=== PATIENT | female | born 1960 | race Hispanic/Latino ===

== ENCOUNTER 2020-04-03 08:46 | Emergency (ER) | payer OTHER ==
[~2020-04-03] VITALS: Ht 170.2 cm; Wt 140.6 kg
[2020-04-03] MEDS ORDERED: KETOROLAC TROMETHAMINE 30 MG/ML VIAL ONE (09:11)
[2020-04-03] MEDS: SODIUM CHLORIDE 0.9% 1000ML 1,000 ML IV STA ×2 (09:12→09:20)
[2020-04-03] MEDS ORDERED: SODIUM CHLORIDE 0.9% 1000ML 1,000 ML ONE (09:12)
[2020-04-03] MEDS ORDERED: ONDANSETRON HCL INJ 2MG/ML 2ML 2 MG/ML VIAL ONE (09:12)
[2020-04-03] MEDS ORDERED: KETOROLAC TROMETHAMINE 30 MG/ML VIAL IV STA (09:20)
[2020-04-03] MEDS ORDERED: ONDANSETRON HCL INJ 2MG/ML 2ML 2 MG/ML VIAL IV STA (09:20)
--- NOTE | 2020-04-03 10:46 | Diagnostic Imaging Report ---
CT of the abdomen and pelvis, without contrast. History: Right flank pain. Comparison: None available. Technique: Multidetector CT scanning of the abdomen and pelvis was performed from the level of the lung bases to the inferior pubic rami without the use of contrast material. Coronal and sagittal multiplanar reformations were obtained. RADIATION DOSE: Total DLP: 814.26 mGy*cm Dose modulation, iterative reconstruction, and/or weight based adjustment of the mA/kV was utilized to reduce the radiation dose to as low as reasonably achievable. Finds: The visualized intrathoracic contents demonstrate no significant abnormalities. The liver is normal in size and attenuation on this noncontrast enhanced examination. The gallbladder is not visualized likely surgically absent. There is no biliary ductal dilatation. The stomach, spleen, pancreas, and bilateral adrenal glands demonstrate an unremarkable noncontrast appearance. The kidneys are normal in size and location. There is a 9 mm nonobstructing stone identified within the inferior pole the right kidney. There is no evidence for hydronephrosis. No ureteral stone or dilatation is appreciated. The partially distended urinary bladder demonstrates no significant abnormalities. The uterus and adnexa are grossly unremarkable. The abdominal aorta is normal course and caliber with minimal atherosclerotic calcifications. The IVC is normal caliber. Please note evaluation the bowel is limited without the use of enteric contrast material. The visualized loops of small and large bowel demonstrate no evidence of obstruction or inflammation. The appendix appears unremarkable. There is no ascites or intraperitoneal free air. No abnormally enlarged lymph nodes are identified within the abdomen or pelvis. There is a small fat-containing of the hernia present. There are degenerative changes of the lower lumbar spine. The osseous structures otherwise no entry no evidence for acute fracture or destructive process. IMPRESSION: 9 mm nonobstructing stone identified within the inferior pole of the right kidney. No evidence for hydronephrosis or obstructive uropathy. Signed by: Dr. Bert Farias MD on 04/03/2020 10:43 AM
--- NOTE | 2020-04-03 11:13 | Emergency Department Note ---
History of Present Illnes History of Present Illness Chief Complaint: Flank Pain History of Present Illness This is a 59 year old female . Chief Complaint Comment right flank pain for one week, seeen at [facility] and dx with uti. pt states not getting better and also vomiting x3 today. Historian: Patient Arrival Mode: Car Onset (how long ago): day(s) (2) Location: R flank Quality: sharp Radiation: Denies non-radiation, Denies back, Denies neck, Denies extremity, Denies abdomen, Denies periumbilical, Denies flank, Denies proximal, Denies dis nura, Denies other Severity: moderate Onset quality: gradual Duration (how long): day(s) (2) Timing of current episode: intermittent Progression: waxing and waning Chronicity: new Context: Denies recent illness, Denies recent surgery, Denies recent immobilization, Denies recent travel, Denies trauma/injury, Denies new medications, Denies hx of DVT/PE, Denies non-compliance w/ medications, Denies other Relieving factors: none Exacerbating factors: none Associated symptoms: Reports nausea/vomiting; Denies denies other symptoms, Denies confusion, Denies chest pain, Denies cough, Denies diaphoresis, Denies fever/chills, Denies headaches, Denies loss of appetite, Denies malaise, Denies rash, Denies seizure, Denies shortness of breath, Denies syncope, Denies weakness, Denies other Treatments prior to arrival: none Previous service: medications given Past Medical/Family History Physician Review I have reviewed the patient's past medical and family history. Any updates have been documented here. Past Medical History Recent Fever: No Clinical Suspicion of Infectio: No New/Unexplained Change in Ment: No Past Medical History: None Past Surgical History: Cholecysctectomy Social History Smoking Cessation: Never Smoker Counseling Performed: No Alcohol Use: None Any Illegal Drug Use: No Physically hurt or threatened: No Other Last Tetanus: unknown Any Pre-Existing Lines (PICC,: No Review of Systems Review of Systems Constitutional: Reports no symptoms EENTM: Reports no symptoms Cardiovascular: Reports no symptoms Respiratory: Reports no symptoms Gastrointestinal: Reports no symptoms Genitourinary: Reports as per HPI Musculoskeletal: Reports no symptoms Integumentary: Reports no symptoms Neurological: Reports no symptoms Psychological: Reports no symptoms Endocrine: Reports no symptoms Hematological/Lymphatic: Reports no symptoms Physical Exam Related Data Allergies: Coded Allergies: No Known Allergies (Unverified , 01/16/15) Triage Vital Signs Vital Signs Date Time Temp Pulse Resp B/P (MAP) Pulse Ox O2 Delivery O2 Flow Rate FiO2 04/03/20 09:08 97.5 95 18 185/105 99 Vital signs reviewed: Yes Physical Exam CONSTITUTIONAL Constitutional: Present well-developed, Present well-nourished HENT HENT: Present normocephalic, Present atraumatic, Present oropharynx clear/moist, Present nose normal HENT L/R: Present left ext ear normal, Present right ext ear normal EYES Eyes: Reports PERRL, Reports conjunctivae normal NECK Neck: Present ROM normal PULMONARY Pulmonary: Present effort normal, Present breath sounds normal CARDIOVASCULAR Cardiovascular: Present regular rhythm, Present heart sounds normal, Present capillary refill normal, Present normal rate GASTROINTESTINAL Abdominal: Present soft, Present bowel sounds normal, Present other (lower back tenderness) GENITOURINARY Genitourinary: Present exam deferred SKIN Skin: Present warm, Present dry MUSCULOSKELETAL Musculoskeletal: Present ROM normal NEUROLOGICAL Neurological: Present alert, Present oriented x 3, Present no gross motor or sensory deficits PSYCHOLOGICAL Psychological: Present mood/affect normal, Present judgement normal Assessment & Plan Medical Decision Making MDM UTI KIDNEY STONE Reassessment Reassessment time: 11:10 Reassessment BETTER Assessment & Plan Final Impression: (1) Abdominal wall pain in right flank (2) Renal colic on right side (3) UTI (urinary tract infection) Depart Disposition: HOME, SELF-CARE Last Vital Signs Date Time Temp Pulse Resp B/P (MAP) Pulse Ox O2 Delivery O2 Flow Rate FiO2 04/03/20 09:08 97.5 95 18 185/105 99 Home Meds No Active Prescriptions or Reported Meds Medications in the ED Ketorolac Tromethamine 30 mg STK-MED ONCE .ROUTE ; Start 04/03/20 at 09:11; Stop 04/03/20 at 09:06; Status DC Ondansetron HCl 4 mg STK-MED ONCE .ROUTE ; Start 04/03/20 at 09:12; Stop 04/03/20 at 09:06; Status DC Sodium Chloride 1,000 ml @ ud STK-MED ONCE .ROUTE ; Start 04/03/20 at 09:12; Stop 04/03/20 at 09:06; Status DC Ketorolac Tromethamine 15 mg ONCE STAT IV Last administered on 04/03/20at 09:25; Admin Dose 15 MG; Start 04/03/20 at 09:20; Stop 04/03/20 at 10:04; Status DC Ondansetron HCl 4 mg NOW STAT IV Last administered on 04/03/20at 09:20; Admin Dose 4 MG; Start 04/03/20 at 09:20; Stop 04/03/20 at 10:04; Status DC Sodium Chloride 1,000 ml @ 999 mls/hr Q1H1M STAT IV Last administered on 04/03/20at 09:20; Admin Dose 999 MLS/HR; Start 04/03/20 at 09:26; Stop 04/03/20 at 10:26; Status DC RUTH ANN BERNARDO MD Apr 03, 2020 11:10
[2020-04-03] MEDS ORDERED: TYLENOL WITH C1 EACH PO (11:15)
[2020-04-03] MEDS ORDERED: BACTRIM DS TAB1 EACH PO (11:15)
[2020-04-03] MEDS ORDERED: KETOROLAC TROME10 MG PO (11:15)
[2020-04-03 11:21] VITALS: BP 167/82
== END 2020-04-03 11:43 | disposition home or self-care (01) ==
LOC: FSED 10:04
DX: M54.5 Low back pain (principal); N23 Unspecified renal colic; N39.0 Urinary tract infection, site not specified
CPT/HCPCS: 74176; 80048; 80076; 85025; 96374; 96376; 99283; J1885; J2405; J7030